=== PATIENT | female | born 1955 | race Caucasian/White ===

== ENCOUNTER 2016-08-29 20:02 | Emergency (ER) | payer MEDICAID ==
[~2016-08-29] VITALS: Ht 162.6 cm; Wt 60.8 kg
[2016-08-29 20:36] VITALS: BP 112/64
[2016-08-29] MEDS ORDERED: IBUPROFEN 600 MG TAB PO ONE (21:30)
== END 2016-08-29 21:56 | disposition home or self-care (01) ==
LOC: ER 20:17
DX: S60.111A Contusion of right thumb with damage to nail, initial encounter (principal); W23.0XXA Caught, crushed, jammed, or pinched between moving objects, initial encounter; Y93.89 Activity, other specified; Y99.8 Other external cause status; Y92.89 Other specified places as the place of occurrence of the external cause
CPT/HCPCS: 73140